=== PATIENT | female | born 1985 | race Caucasian/White ===

== ENCOUNTER 2020-09-19 18:51 | Observation (INO) ==
[2020-09-19] MEDS ORDERED: 0.9 % Sodium Chloride 1,000 ML IVC ONE (19:36)
[2020-09-19] MEDS ORDERED: Metoclopramide 10 MG/2 ML VIAL IVP ONE (19:36)
[2020-09-19] MEDS ORDERED: Ketorolac 15 MG/ML VIAL IVP ONE (19:37)
[2020-09-19] MEDS ORDERED: Famotidine 20 MG/2 ML VIAL IVP ONE (20:01)
[2020-09-19 20:16] LABS: Basophils % 0.4 %; Eosinophils # 0.2 K/mcL (0.0-0.6); Hematocrit 41.2 % (35.3-44.9); Immature Granulocytes % 0.3 % (0-4); Lymphocytes # 3.8 K/mcL (0.6-4.6); Lymphocytes % 38.6 %; Mean Corpuscular Hemoglobin 32.1 pg (28.0-33.3); Mean Corpuscular Volume 94.5 fL (83.0-100.0); Mean Platelet Volume 9.9 fL (9.4-12.4); Monocytes # 0.5 K/mcL (0.0-1.3); Monocytes % 5.5 %; Neutrophils # 5.2 K/mcL (1.6-8.9); Platelet Count 261 K/mcL (140-400); Red Blood Count 4.36 M/mcL (3.82-4.97); Red Cell Distribution Width 12.7 % (11.5-14.5); Segmented Neutrophils % 53.2 %; White Blood Count 9.8 K/mcL (4.3-11.1)
[2020-09-19 20:17] LABS: Bilirubin,Urine Negative (Negative); Blood,Urine Negative (Negative); Clarity,Urine Clear (Clear); Color,Urine Yellow (Yellow); Glucose,Urine (UA) Normal (Normal); Ketones,Urine Negative (Negative); Leukocyte Esterase,Urine Negative (Negative); Nitrite,Urine Negative (Negative); PH,Urine 7.5 pH Units (5.0-8.0); Protein,Urine Trace mg/dL (Neg-Trace); Specific Gravity,Urine 1.022 (1.010-1.025); Urobilinogen,Urine Normal (Normal)
[2020-09-19 20:45] LABS: Alanine Aminotransferase 17 Units/L (7-52); Albumin/Globulin Ratio 1.3 (1.1-2.2); Alkaline Phosphatase 62 Units/L (34-104); Aspartate Amino Transferase 16 Units/L (13-39); BUN/Creatinine Ratio 13 (6-26); Bilirubin,Direct 0.1 mg/dL (0.0-0.2); Bilirubin,Indirect 0.8 mg/dL (0.0-1.0); Bilirubin,Total 0.9 mg/dL (0.3-1.0); Blood Urea Nitrogen 8 mg/dL (6-20); Carbon Dioxide 23 mEq/L (23-29); Chloride 105 mEq/L (98-107); Glucose 116 mg/dL (70-105); Lipase 10 Units/L (11-82); Osmolality,Calculated 281 (280-300); Potassium 3.6 mEq/L (3.5-5.1); Sodium 136 mEq/L (136-145); eGFR For African Americans > 60 (> 60); eGFR For Non-African Americans > 60 (> 60)
[2020-09-19] MEDS ORDERED: Naloxone 0.4 MG/ML INJ IVP PRN (23:14)
[2020-09-19] MEDS ORDERED: Ondansetron 4 MG/2 ML VIAL IVP PRN (23:14)
[2020-09-19] MEDS ORDERED: Melatonin 3 MG TABLET PO PRN (23:14)
[2020-09-19] MEDS: 0.9 % Sodium Chloride 1,000 ML IVC SCH (23:36)
[2020-09-19] MEDS ORDERED: *HR* Dextrose 50 % in Water (Vial) 50 ML VIAL IVP PRN (23:53)
[2020-09-19] MEDS ORDERED: Dextrose Gel 15 GM/37.5 ML TUBE PO PRN ×2 (23:53)
[2020-09-19] MEDS ORDERED: D5% in Water 1,000 ML IVC PRN (23:53)
[2020-09-20] MEDS: Insulin LISPRO 300 UNITS/3 ML VIAL SUBQ SCH ×4 (00:04→17:17)
[2020-09-20 05:01] LABS: INR 1.1; Prothrombin Time 12.5 Seconds (9.4-12.1)
[2020-09-20 05:12] LABS: BUN/Creatinine Ratio 17 (6-26); Blood Urea Nitrogen 9 mg/dL (6-20); Calcium 8.1 mg/dL (8.6-10.3); Carbon Dioxide 20 mEq/L (23-29); Chloride 111 mEq/L (98-107); Glucose 133 mg/dL (70-105); Magnesium 1.8 mg/dL (1.6-2.6); Osmolality,Calculated 287 (280-300); Phosphorous 3.3 mg/dL (2.7-4.5); Potassium 3.9 mEq/L (3.5-5.1); Sodium 138 mEq/L (136-145); eGFR For African Americans > 60 (> 60); eGFR For Non-African Americans > 60 (> 60)
[2020-09-20 06:55] LABS: Basophils # 0.1 K/mcL (0.0-0.2); Basophils % 0.7 %; Eosinophils # 0.2 K/mcL (0.0-0.6); Eosinophils % 2.5 %; Hemoglobin 12.2 g/dL (11.5-15.4); Immature Granulocytes % 0.1 % (0-4); Lymphocytes # 3.2 K/mcL (0.6-4.6); Lymphocytes % 41.4 %; Mean Corpuscular HGB Conc 33.9 g/dL (31.6-35.5); Mean Corpuscular Hemoglobin 32.1 pg (28.0-33.3); Mean Corpuscular Volume 94.7 fL (83.0-100.0); Mean Platelet Volume 9.9 fL (9.4-12.4); Monocytes # 0.5 K/mcL (0.0-1.3); Monocytes % 7.1 %; Neutrophils # 3.7 K/mcL (1.6-8.9); Platelet Count 229 K/mcL (140-400); Red Cell Distribution Width 12.9 % (11.5-14.5); Segmented Neutrophils % 48.2 %; White Blood Count 7.6 K/mcL (4.3-11.1)
[2020-09-20] MEDS: 0.9 % Sodium Chloride 1,000 ML IVC SCH (08:06)
[2020-09-20] MEDS ORDERED: Ondansetron 4 MG/2 ML VIAL IVP PRN ×3 (19:22→23:44)
[2020-09-20] MEDS ORDERED: *HR* HYDROmorphone PF 0.5 MG/0.5 ML SYRINGE IVP PRN (19:22)
[2020-09-20] MEDS ORDERED: Albuterol 2.5 MG/3 ML NEBULIZER IH ONE (20:36)
[2020-09-20] MEDS ORDERED: Famotidine 20 MG/2 ML VIAL IVP ONE (20:36)
[2020-09-20] MEDS ORDERED: Acetaminophen IV 1,000 MG/100 ML BAG IVPB ONE (20:36)
[2020-09-20] MEDS ORDERED: *HR* Midazolam HCl 2 MG/2 ML VIAL ONE (20:40)
[2020-09-20] MEDS ORDERED: *HR* Propofol 200 MG/20 ML VIAL IVP ONE (20:40)
[2020-09-20] MEDS ORDERED: *HR* FentaNYL (PF) 100 MCG/2 ML VIAL ONE ×2 (20:40→22:04)
[2020-09-20] MEDS ORDERED: *HR* Rocuronium Bromide 50 MG/5 ML VIAL ONE (20:42)
[2020-09-20] MEDS ORDERED: Ondansetron 4 MG/2 ML VIAL ONE (20:42)
[2020-09-20] MEDS ORDERED: Lidocaine -MPF 2% 2 ML VIAL ONE (20:42)
[2020-09-20] MEDS ORDERED: Albuterol 2.5 MG/3 ML NEBULIZER ONE (20:46)
[2020-09-20] MEDS ORDERED: *HR* Succinylcholine 200 MG/10 ML VIAL IVP ONE (21:45)
[2020-09-20] MEDS ORDERED: Sugammadex Sodium 200 MG/2 ML VIAL IV ONE (22:49)
[2020-09-20] MEDS ORDERED: D5% in Water 1,000 ML IVC PRN (23:44)
[2020-09-20] MEDS ORDERED: *HR* OxyCODONE/APAP 5/325 TABLET PO PRN (23:44)
[2020-09-20] MEDS ORDERED: Dextrose Gel 15 GM/37.5 ML TUBE PO PRN ×2 (23:44)
[2020-09-20] MEDS ORDERED: Naloxone 0.4 MG/ML INJ IVP PRN (23:44)
[2020-09-20] MEDS ORDERED: Melatonin 3 MG TABLET PO PRN (23:44)
[2020-09-20] MEDS ORDERED: *HR* Dextrose 50 % in Water (Vial) 50 ML VIAL IVP PRN (23:44)
[2020-09-21] MEDS: Insulin LISPRO 300 UNITS/3 ML VIAL SUBQ SCH ×2 (00:01→05:22)
[2020-09-21] MEDS: Ketorolac 15 MG/ML VIAL IVP SCH ×2 (00:05→05:22)
[2020-09-21 07:10] VITALS: BP 107/69; PULSE 51; TEMP 97.9
[2020-09-21 08:31] VITALS: O2SAT 94
== END 2020-09-21 10:54 | disposition home or self-care (01) ==
LOC: 3BNU 18:51 → EMEROOARM 18:51 → SUATTDRO 22:00 → 3BNU 22:21
PROVIDERS: ADMIT Internal Medicine; ATTEND Registered Nurse